=== PATIENT | male | born 1930 | race Caucasian/White ===

== ENCOUNTER 2018-02-11 09:10 | Inpatient (IN) | payer MEDICARE ==
[~2018-02-11] VITALS: Ht 182.9 cm; Wt 96.0 kg
[~2018-02-11 09:10] MED LIST: AMIO200 PO; AMLO5 PO; AMOCLA875 PO; ASPI325 PO; ASPI81EC PO; BIOTIN PO; CLOP75 PO; GABA100 PO; HYDR10 PO; ISOMON30 PO; METO50 PO; MULVITMIND PO; NITR.4SL SL; PANT40 PO; SIMV10 PO; TAMS.4ER PO; TRAZ100 PO; WARF7.5 PO
[2018-02-11] MEDS ORDERED: DOXA4 PO (09:36)
[2018-02-11] MEDS ORDERED: ASPI81CH PO (09:37)
[2018-02-11 16:05] LABS: Magnesium, Blood 2.5 mg/dL (1.6-2.4)
[2018-02-11 16:08] LABS: Albumin, Blood 2.8 g/dL (3.4-5.0); Anion Gap 8 mmol/L (6-16); Blood Urea Nitrogen 36 mg/dL (8-24); Bun/Creatinine Ratio 9.4 (12.0-20.0); CO2, Blood 26 mmol/L (21-32); Calcium, Blood 8.8 mg/dL (8.5-10.1); Chloride, Blood 105 mmol/L (98-108); Creatinine, Blood 3.84 mg/dL (0.60-1.20); Glomerular Filtration Rate 16 (60-); Glucose, Blood 155 mg/dL (70-99); Phosphorus, Blood 4.7 mg/dL (2.5-4.9); Potassium, Blood 4.8 mmol/L (3.5-5.5); Sodium, Blood 139 mmol/L (136-145)
[2018-02-11 23:24] LABS: Source, Urine Voided
[2018-02-11 23:27] LABS: Bilirubin, Urine Neg (Neg); Blood, Urine 1+ (Neg); Glucose Qualitative, Urine Neg (Neg); Ketones, Urine Neg (Neg); Leukocyte Esterase, Urine Neg (Neg); Nitrite, Urine Neg (Neg); Protein, Urine 4+ (Neg); Urobilinogen, Urine NORM (Normal); pH, Urine 6.5 (5.0-8.0)
[2018-02-11 23:32] LABS: Appearance, Urine Clear (Clear); Color, Urine Yellow (P-Yellow)
[2018-02-11 23:34] LABS: Bacteria Not Seen /hpf; Red Blood Cells, Urine Rare /hpf (0-2); Squamous Epithelial Cells Rare /hpf (Few); White Blood Cells, Urine Not Seen /hpf (0-5)
[2018-02-12 05:22] LABS: Hematocrit 39.7 % (37.0-53.0); Hemoglobin 12.5 g/dL (13.5-17.5)
[2018-02-12 05:44] LABS: Albumin, Blood 2.5 g/dL (3.4-5.0); Anion Gap 9 mmol/L (6-16); Blood Urea Nitrogen 41 mg/dL (8-24); Bun/Creatinine Ratio 11.2 (12.0-20.0); CO2, Blood 24 mmol/L (21-32); Calcium, Blood 8.3 mg/dL (8.5-10.1); Chloride, Blood 107 mmol/L (98-108); Creatinine, Blood 3.67 mg/dL (0.60-1.20); Glomerular Filtration Rate 17 (60-); Glucose, Blood 112 mg/dL (70-99); Magnesium, Blood 2.4 mg/dL (1.6-2.4); Phosphorus, Blood 4.3 mg/dL (2.5-4.9); Potassium, Blood 5.3 mmol/L (3.5-5.5); Sodium, Blood 140 mmol/L (136-145)
[2018-02-13 04:49] LABS: BASOPHILS ABSOLUTE AUTO 0.02 K/mm3 (0.00-0.23); BASOPHILS PERCENT AUTO 0 % (0-2); EOSINOPHILS ABSOLUTE AUTO 0.01 K/mm3 (0.00-0.68); EOSINOPHILS PERCENT AUTO 0 % (0-6); Hematocrit 42.9 % (37.0-53.0); Hemoglobin 13.5 g/dL (13.5-17.5); Mean Corpuscular HGB 32.8 pg (26.0-34.0); Mean Corpuscular HGB Conc 31.5 g/dL (31.5-36.5); Mean Corpuscular Volume 104 fL (80-100); Mean Platelet Volume 9.1 fL (9.1-12.4); Platelet Count 193 K/mm3 (150-400); RDW Coefficient Variation 13.4 % (11.7-14.2); RDW Standard Deviation 51.2 fL (35.1-46.3); Red Blood Cell Count 4.12 M/mm3 (4.30-5.90); White Blood Cell Count 19.28 K/mm3 (4.00-11.30)
[2018-02-13 04:50] LABS: IMMATURE GRAN ABSOLUTE AUTO 0.05 K/mm3 (0.00-0.10); IMMATURE GRAN PERCENT AUTO 0 % (0-1); LYMPHOCYTES ABSOLUTE AUTO 12.84 K/mm3 (0.84-5.20); LYMPHOCYTES PERCENT AUTO 67 % (21-46); MONOCYTES ABSOLUTE AUTO 0.33 K/mm3 (0.16-1.47); MONOCYTES PERCENT AUTO 2 % (4-13); NEUTROPHILS ABSOLUTE AUTO 6.03 K/mm3 (1.96-9.15); NEUTROPHILS PERCENT AUTO 31 % (41-73)
[2018-02-13 05:11] LABS: Albumin, Blood 2.6 g/dL (3.4-5.0); Anion Gap 8 mmol/L (6-16); Blood Urea Nitrogen 51 mg/dL (8-24); Bun/Creatinine Ratio 14.3 (12.0-20.0); CO2, Blood 24 mmol/L (21-32); CPK Creatine Kinase 118 U/L (39-308); Calcium, Blood 8.4 mg/dL (8.5-10.1); Chloride, Blood 109 mmol/L (98-108); Creatinine, Blood 3.57 mg/dL (0.60-1.20); Glomerular Filtration Rate 17 (60-); Glucose, Blood 96 mg/dL (70-99); Phosphorus, Blood 4.3 mg/dL (2.5-4.9); Sodium, Blood 141 mmol/L (136-145)
[2018-02-13 05:23] LABS: BASOPHILS PERCENT MAN 0 % (0-2); EOSINOPHILS ABSOLUTE MAN 0.19 K/mm3 (0.00-0.68); EOSINOPHILS PERCENT MAN 1 % (0-6); LYMPHOCYTES ABSOLUTE MAN 13.88 K/mm3 (0.84-5.20); LYMPHOCYTES PERCENT MAN 72 % (21-46); MONOCYTES ABSOLUTE MAN 0.19 K/mm3 (0.16-1.47); MONOCYTES PERCENT MAN 1 % (4-13); NEUTROPHILS ABSOLUTE MAN 4.43 K/mm3 (1.96-9.15); OTHER CELL PERCENT MAN 3 % (0-0); SEG NEUTROPHILS PERCENT MAN 23 % (41-73); TOTAL CELLS COUNTED 100
[2018-02-13 10:56] LABS: Creatinine Urine 35.3 mg/dL (27.00-270.00)
[2018-02-13 11:05] LABS: Protein, Urine Quantitative 198.7 mg/dL (0.0-11.9)
[2018-02-14 05:10] LABS: Hematocrit 43.4 % (37.0-53.0); Hemoglobin 13.7 g/dL (13.5-17.5); Mean Corpuscular HGB 32.9 pg (26.0-34.0); Mean Corpuscular HGB Conc 31.6 g/dL (31.5-36.5); Mean Corpuscular Volume 104 fL (80-100); Mean Platelet Volume 9.2 fL (9.1-12.4); NRBC ABSOLUTE 0.02 K/mm3 (0.00-0.02); NRBC Auto 0.1 /100 WBC (0.0-0.2); Platelet Count 204 K/mm3 (150-400); RDW Coefficient Variation 13.2 % (11.7-14.2); RDW Standard Deviation 50.7 fL (35.1-46.3); Red Blood Cell Count 4.16 M/mm3 (4.30-5.90); White Blood Cell Count 20.74 K/mm3 (4.00-11.30)
[2018-02-14 05:31] LABS: Albumin, Blood 2.7 g/dL (3.4-5.0); Anion Gap 7 mmol/L (6-16); Blood Urea Nitrogen 57 mg/dL (8-24); Bun/Creatinine Ratio 15.8 (12.0-20.0); CO2, Blood 26 mmol/L (21-32); Calcium, Blood 8.5 mg/dL (8.5-10.1); Chloride, Blood 108 mmol/L (98-108); Glomerular Filtration Rate 17 (60-); Glucose, Blood 96 mg/dL (70-99); Phosphorus, Blood 4.6 mg/dL (2.5-4.9); Sodium, Blood 141 mmol/L (136-145)
[2018-02-14 06:18] LABS: BAND PERCENT MAN 3 % (0-8); BASOPHILS PERCENT MAN 0 % (0-2); EOSINOPHILS PERCENT MAN 0 % (0-6); LYMPHOCYTES PERCENT MAN 82 % (21-46); MONOCYTES PERCENT MAN 0 % (4-13); NEUTROPHILS ABSOLUTE MAN 3.73 K/mm3 (1.96-9.15); SEG NEUTROPHILS PERCENT MAN 15 % (41-73); TOTAL CELLS COUNTED 100
[2018-02-14] MEDS ORDERED: Pacerone100 MG PO (09:07)
[2018-02-14] MEDS ORDERED: Tessalon200 MG PO (09:07)
[2018-02-14] MEDS ORDERED: Flonase 0.05% N16 GM (09:08)
[2018-02-14] MEDS ORDERED: FURO40 PO (09:09)
[2018-02-14] MEDS ORDERED: DULERA 200 MCG/13 GM INH (09:09)
[2018-02-14] MEDS ORDERED: PRED20 PO (09:13)
[2018-02-14] MEDS ORDERED: TIOT18 INH (09:13)
[2018-02-14 11:30] LABS: Antinuclear Antibody Screen Negative (Negative)
[2018-02-15 08:12] LABS: COMPLEMENT C3, SERUM 117 mg/dL (82-167); COMPLEMENT C4, SERUM 23 mg/dL (14-44)
[2018-02-15 12:13] LABS: HBSAG SCREEN Negative (Negative); HEP B CORE AB, TOT Negative (Negative); HEP C VIRUS AB <0.1 (0.0-0.9)
== END 2018-02-14 10:14 | disposition home or self-care (01) | DRG 189 ==
LOC: ER 09:10 → MEDS 10:12 → ENPENDDIS 02-14 08:22 → EDPENDDIS 02-14 08:22 → MEDS 02-14 10:14
PROVIDERS: Internal Medicine; Internal Medicine Nephrology
DX: J96.21 Acute and chronic respiratory failure with hypoxia (principal); I12.0 Hypertensive chronic kidney disease with stage 5 chronic kidney disease or end stage renal disease; N18.5 Chronic kidney disease, stage 5; J44.1 Chronic obstructive pulmonary disease with (acute) exacerbation; N17.9 Acute kidney failure, unspecified; C91.90 Lymphoid leukemia, unspecified not having achieved remission; I48.0 Paroxysmal atrial fibrillation; E78.5 Hyperlipidemia, unspecified; I25.10 Atherosclerotic heart disease of native coronary artery without angina pectoris; D64.9 Anemia, unspecified; E88.09 Other disorders of plasma-protein metabolism, not elsewhere classified; T46.2X1A Poisoning by other antidysrhythmic drugs, accidental (unintentional), initial encounter; Z85.038 Personal history of other malignant neoplasm of large intestine; Z87.891 Personal history of nicotine dependence; Z90.5 Acquired absence of kidney; Z95.810 Presence of automatic (implantable) cardiac defibrillator; Z99.81 Dependence on supplemental oxygen; I25.2 Old myocardial infarction; Z95.5 Presence of coronary angioplasty implant and graft
CPT/HCPCS: 36415; 76770; 78582; 80069; 81001; 81050; 82550; 82570; 83735; 84156; 85014; 85018; 85025; 85651; 86038; 86160; 94640; 94760; 96374; 99285-25; A9540; A9558; J1644; J2930; J7030

== ENCOUNTER → 2018-04-17 | Outpatient (CLI) | payer SELFPAY ==
[~2018-04-17] MED LIST changes: +ALBU2.5V5 NEB; +ASPI81CH PO; +DOXA4 PO; +DULERA 200 MCG/13 GM INH; +FURO40 PO; +Flonase 0.05% N16 GM; +LEVFLO500 PO; +PRED20 PO; +Pacerone100 MG PO; +TIOT18 INH; +Tessalon200 MG PO
[2018-04-19 13:01] LABS: Creatinine Urine 30.2 mg/dL (27.00-270.00); Protein, Urine Quantitative 52.8 mg/dL (0.0-11.9)
== END | disposition home or self-care (01) ==
LOC: LAB 01:00 → LAB SHORT 01:00 → LAB FUT 04-14 17:00
PROVIDERS: Internal Medicine Nephrology
DX: N18.5 Chronic kidney disease, stage 5 (principal); D63.1 Anemia in chronic kidney disease; N25.81 Secondary hyperparathyroidism of renal origin; E55.9 Vitamin D deficiency, unspecified; E78.00 Pure hypercholesterolemia, unspecified; R76.9 Abnormal immunological finding in serum, unspecified; R94.5 Abnormal results of liver function studies; R94.6 Abnormal results of thyroid function studies
CPT/HCPCS: 81050; 82043; 82570; 84156

== ENCOUNTER → 2020-01-03 | Outpatient (CLI) | payer OTHER ==
[2020-01-04 11:49] LABS: Creatinine Urine 49.3 mg/dL (27.00-270.00); Protein, Urine Quantitative 102.3 mg/dL (0.0-11.9)
== END | disposition home or self-care (01) ==
LOC: LAB 17:00 → LAB SHORT 17:00
PROVIDERS: Internal Medicine Nephrology
DX: N18.5 Chronic kidney disease, stage 5 (principal); D63.1 Anemia in chronic kidney disease; R73.01 Impaired fasting glucose
CPT/HCPCS: 81050; 82043; 82570; 84156

== ENCOUNTER 2020-01-29 07:53 | Day surgery (SDC) | payer OTHER ==
--- NOTE | 2020-01-29 11:30 | NUR ---
TOOK REPORT FROM JUSTO LINDER. ASSUMED CARE OF PT. PT'S VSS. PT WITH C/O BEING COLD. WARM BLANKET PROVIDED AND WARMER HOOKED UP. PT STATES "THATS MUCH BETTER. PT DENIES ANY FURTHER NEEDS AT THIS TIME. WILL CONTINUE TO MONITOR.
--- NOTE | 2020-01-29 12:07 | NUR ---
Patient up to Ambulate independently. Gait steady. Discharge instructions reviewed with patient. Patient verbalizes understanding. Copy given to patient to take home. Discharged to private car for ride home.
== END 2020-01-29 22:39 | disposition home or self-care (01) ==
LOC: RAD 07:53 → CT 10:00 → RAD 22:39
DX: M50.01 Cervical disc disorder with myelopathy, high cervical region (principal); I10 Essential (primary) hypertension; H91.90 Unspecified hearing loss, unspecified ear; M47.12 Other spondylosis with myelopathy, cervical region; Z79.82 Long term (current) use of aspirin; Z79.899 Other long term (current) drug therapy; Z88.8 Allergy status to other drugs, medicaments and biological substances; Z87.891 Personal history of nicotine dependence; M54.16 Radiculopathy, lumbar region; M47.16 Other spondylosis with myelopathy, lumbar region; M96.1 Postlaminectomy syndrome, not elsewhere classified; M48.062 Spinal stenosis, lumbar region with neurogenic claudication
CPT/HCPCS: 62302; 72126; Q9967